=== PATIENT | male | born 1935 | race Caucasian/White ===

== ENCOUNTER 2021-05-10 12:59 | Inpatient (IN) | payer MEDICARE ==
--- NOTE | 2021-05-10 14:23 | ED ---
General Adult HPI - General Chief complaint: Skin/Abscess/Foreign Body Stated complaint: Toe infection Time Seen by Provider: 05/10/21 14:16 Source: patient, family Mode of arrival: wheelchair Limitations: no limitations - History of Present Illness Initial comments: Patient presents to the ED with his family for evaluation. 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 Per daughter, for the past 2-3 days, the patient has had worsening redness to his right first toe and foot. Patient also admits to having increasing right foot pain over the past couple of days. Daughter states that she noticed maggots in his right first toe wound today, and so she decided to bring the patient to the ED. Daughter states that the patient was started on penicillin by his industrial cleaning technician yesterday, and she states that he has had 3 doses of it so far. Patient denies having a fever, trauma or injury, any other site of pain, chest pain or pressure, dyspnea, dizziness, nausea or vomiting, or any other symptoms or complaints. - Related Data Home Medications Medication Instructions Recorded Confirmed Apixaban [Eliquis] 5 mg PO BID 05/10/21 05/10/21 Clopidogrel Bisulfate [Plavix] 75 mg PO DAILY 05/10/21 05/10/21 Donepezil HCl [Aricept] 10 mg PO HS 05/10/21 05/10/21 Furosemide [Lasix] 60 mg PO DAILY 05/10/21 05/10/21 Glimepiride [Amaryl] 4 mg PO BID 05/10/21 05/10/21 Losartan Potassium 50 mg PO DAILY 05/10/21 05/10/21 Metoprolol Tartrate 12.5 mg PO BID 05/10/21 05/10/21 Pravastatin Sodium [Pravachol] 40 mg PO DAILY 05/10/21 05/10/21 Tamsulosin HCl [Flomax] 0.4 mg PO DAILY 05/10/21 05/10/21 lisinopriL 20 mg PO DAILY 05/10/21 05/10/21 sitaGLIPtin [Januvia] 100 mg PO DAILY 05/10/21 05/10/21 Allergies Allergy/AdvReac Type Severity Reaction Status Date / Time No Known Allergies Allergy Verified 05/10/21 16:05 Review of Systems ROS Statement: Those systems with pertinent positive or pertinent negative responses have been documented in the HPI. ROS Other: All systems not noted in ROS Statement are negative. Past Medical History Past Medical History: Diabetes Mellitus History of Any Multi-Drug Resistant Organisms: None Reported Additional Past Surgical History / Comment(s): ankle surgery Past Psychological History: No Psychological Hx Reported Smoking Status: Never smoker Past Alcohol Use History: Occasional Past Drug Use History: None Reported General Exam Limitations: no limitations Head exam: Present: atraumatic, normocephalic Eye exam: Present: normal appearance, EOMI ENT exam: Present: mucous membranes moist Neck exam: Present: other (Trachea is in midline) Respiratory exam: Present: normal lung sounds bilaterally. Absent: respiratory distress, wheezes, rales, rhonchi, stridor Cardiovascular Exam: Present: bradycardia, irregular rhythm, normal heart sounds, other (Normal radial pulses bilaterally) Extremities exam: Present: other (An open wound is noted to the patient's distal right first toe with maggots noted within the wound; erythema, warmth and tenderness is noted to the patient's first and third toes, as well as the dorsum of the patient's right foot; no crepitation or fluctuence is appreciated; 1+ right DP pulse). Absent: calf tenderness Neurological exam: Present: alert, oriented X3. Absent: motor sensory deficit Psychiatric exam: Present: normal affect, normal mood Skin exam: Present: warm, dry, intact Course Vital Signs 05/10/21 05/10/21 05/10/21 13:16 13:30 16:21 Temperature 98.5 F Pulse Rate 47 L 38 L 40 L Respiratory 20 18 18 Rate Blood Pressure 120/75 141/61 141/62 O2 Sat by Pulse 98 98 100 Oximetry - Reevaluation(s) Reevaluation #1: 05/10/21 15:36 Case, H&P, test results and ED management were discussed with Dr. Vasquez. She accepts hospital admission. She agrees with podiatry consultation. She has no further recommendations at this time. EKG Findings - EKG Comments: EKG Findings:: Atrial fibrillation with slow ventricular response, ventricular rate of 36 bpm, normal QRS duration, normal QT interval, nonspecific T-wave abnormality, normal axis Medical Decision Making - Medical Decision Making Given the patient's diabetic foot/foot cellulitis and open wound with maggots, will admit the patient to the hospital for IV antibiotics and podiatry consultation. Dr. Vasquez has accepted hospital admission. Patient was given IV vancomycin and IV Zosyn in the ED. Patient is also noted to be bradycardic with heart rate in the 30s and 40s in the emergency department. Patient's rhythm appears to be atrial fibrillation. Patient is normotensive. Patient and daughter are unaware of any prior diagnosis of atrial fibrillation, but they do state that he has "a heart condition". They do not know what medications the patient takes, and they state that they are unable to get the patient's medication list at this time. Dr. Vasquez is aware, and she has asked that I place a cardiology consult. - Lab Data Result diagrams: 05/10/21 14:47 05/10/21 14:47 Lab Results 05/10/21 05/10/21 05/10/21 Range/Units 14:47 14:47 14:47 WBC 7.3 (3.8-10.6) k/uL RBC 3.95 L (4.30-5.90) m/uL Hgb 12.5 L (13.0-17.5) gm/dL Hct 37.1 L (39.0-53.0) % MCV 94.0 (80.0-100.0) fL MCH 31.7 (25.0-35.0) pg MCHC 33.8 (31.0-37.0) g/dL RDW 13.3 (11.5-15.5) % Plt Count 187 (150-450) k/uL MPV 7.6 Neutrophils % 78 % Lymphocytes % 14 % Monocytes % 4 % Eosinophils % 3 % Basophils % 0 % Neutrophils # 5.7 (1.3-7.7) k/uL Lymphocytes # 1.0 (1.0-4.8) k/uL Monocytes # 0.3 (0-1.0) k/uL Eosinophils # 0.2 (0-0.7) k/uL Basophils # 0.0 (0-0.2) k/uL PT 11.5 (9.0-12.0) sec INR 1.1 (<1.2) APTT 24.5 (22.0-30.0) sec Sodium 140 (137-145) mmol/L Potassium 4.0 (3.5-5.1) mmol/L Chloride 104 (98-107) mmol/L Carbon Dioxide 29 (22-30) mmol/L Anion Gap 7 mmol/L BUN 23 H (9-20) mg/dL Creatinine 0.99 (0.66-1.25) mg/dL Est GFR (CKD-EPI)AfAm 79 (>60 ml/min/1.73 sqM) Est GFR (CKD-EPI)NonAf 68 (>60 ml/min/1.73 sqM) Glucose 113 H (74-99) mg/dL Plasma Lactic Acid Anjel (0.7-2.0) mmol/L Calcium 8.9 (8.4-10.2) mg/dL Total Bilirubin 0.8 (0.2-1.3) mg/dL AST 22 (17-59) U/L ALT 15 (4-49) U/L Alkaline Phosphatase 80 (38-126) U/L Total Protein 6.1 L (6.3-8.2) g/dL Albumin 3.5 (3.5-5.0) g/dL 05/10/21 Range/Units 14:47 WBC (3.8-10.6) k/uL RBC (4.30-5.90) m/uL Hgb (13.0-17.5) gm/dL Hct (39.0-53.0) % MCV (80.0-100.0) fL MCH (25.0-35.0) pg MCHC (31.0-37.0) g/dL RDW (11.5-15.5) % Plt Count (150-450) k/uL MPV Neutrophils % % Lymphocytes % % Monocytes % % Eosinophils % % Basophils % % Neutrophils # (1.3-7.7) k/uL Lymphocytes # (1.0-4.8) k/uL Monocytes # (0-1.0) k/uL Eosinophils # (0-0.7) k/uL Basophils # (0-0.2) k/uL PT (9.0-12.0) sec INR (<1.2) APTT (22.0-30.0) sec Sodium (137-145) mmol/L Potassium (3.5-5.1) mmol/L Chloride (98-107) mmol/L Carbon Dioxide (22-30) mmol/L Anion Gap mmol/L BUN (9-20) mg/dL Creatinine (0.66-1.25) mg/dL Est GFR (CKD-EPI)AfAm (>60 ml/min/1.73 sqM) Est GFR (CKD-EPI)NonAf (>60 ml/min/1.73 sqM) Glucose (74-99) mg/dL Plasma Lactic Acid Anjel 1.0 (0.7-2.0) mmol/L Calcium (8.4-10.2) mg/dL Total Bilirubin (0.2-1.3) mg/dL AST (17-59) U/L ALT (4-49) U/L Alkaline Phosphatase (38-126) U/L Total Protein (6.3-8.2) g/dL Albumin (3.5-5.0) g/dL - Radiology Data Radiology results: report reviewed (Right foot x-rays: There is loss of the tuft of the distal phalanx of the big toe consistent with some chronic osteomyelitis) Disposition Clinical Impression: Cellulitis of right foot, Infestation, maggots, Atrial fibrillation with slow ventricular response Disposition: ADMITTED IP TO THIS [facility] Condition: Stable Is patient prescribed a controlled substance at d/c from ED?: No Time of Disposition: 15:41
[2021-05-10] MEDS ORDERED: VANCOMYCIN IV PER PHARMACY 1 EACH MISC MISCELLANE STA (14:45)
[2021-05-10] MEDS ORDERED: PIPERACILLIN-TAZOBACTAM 4.5 GM in SODIUM CHLORIDE 0.9% 100 ML IVPB STA (14:45)
[2021-05-10] MEDS ORDERED: PIPERACILLIN-TAZOBACTAM 3.375 GM in SODIUM CHLORIDE 0.9% 100 ML IVPB STA (14:48)
[2021-05-10 14:58] LABS: Basophils % (A) 0 %; Eosinophils # (A) 0.2 k/uL (0-0.7); Eosinophils % (A) 3 %; HCT 37.1 % (39.0-53.0); HGB 12.5 gm/dL (13.0-17.5); Lymphocytes % (A) 14 %; MCH 31.7 pg (25.0-35.0); MCHC 33.8 g/dL (31.0-37.0); Mean Platelet Volume 7.6; Monocytes # (A) 0.3 k/uL (0-1.0); Monocytes % (A) 4 %; Neutrophils # (A) 5.7 k/uL (1.3-7.7); Neutrophils % (A) 78 %; Platelet Count 187 k/uL (150-450); RBC 3.95 m/uL (4.30-5.90); RDW 13.3 % (11.5-15.5); WBC 7.3 k/uL (3.8-10.6)
[2021-05-10 15:06] LABS: Albumin 3.5 g/dL (3.5-5.0); Calcium 8.9 mg/dL (8.4-10.2); Total Bilirubin 0.8 mg/dL (0.2-1.3); Total Protein 6.1 g/dL (6.3-8.2)
[2021-05-10 15:09] LABS: INR 1.1 (<1.2); Partial Thromboplastin Time 24.5 sec (22.0-30.0); Prothrombin Time 11.5 sec (9.0-12.0)
[2021-05-10] MEDS ORDERED: VANCOMYCIN 1,500 MG in SODIUM CHLORIDE 0.9% 250 ML IVPB ONE (15:30)
--- NOTE | 2021-05-10 16:27 | XR ---
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 Components appear in anatomic position. There is narrowing and spurring at the first MP joint. There is vascular calcification. There is some apparent destruct ion of the tuft of the distal phalanx of the big toe. The metatarsals are intact. IMPRESSION: There is loss of the tuft of the distal phalanx of the big toe consistent with some chron ic osteomyelitis.
--- NOTE | 2021-05-10 19:39 | HP ---
HISTORY AND PHYSICAL DATE OF SERVICE: 05/10/2021. CHIEF COMPLAINT: Toe infection. HISTORY OF PRESENT ILLNESS: This 85-year-old gentleman with a past medical history of multiple medical problems, including diabetes mellitus and history of ankle surgery, being followed by Dr. Morataya in the outpatient setting, is apparently living with family. Per the patient's daughter, the patient has a chronic right first toe infection with recurrent infections, and for the last 2-3 days the patient has been complaining of significant redness and difficulty and also some right foot pain. The patient taken to [facility] and admitted for further evaluation and treatment. The patient was started on penicillin by the patient's inclusion teacher and the wound has shown some maggots in the wound. The patient is admitted for further evaluation and treatment. There is no history of any fever, rigor or chills at this time. PAST MEDICAL HISTORY: History of diabetes mellitus, type 2. MEDICATIONS: Medications prior to admission include Aricept, lisinopril, Flomax, losartan, Lasix, Januvia, Pravachol, metoprolol, Amaryl, Plavix, Eliquis. Doses are reviewed. ALLERGIES: NONE. FAMILY HISTORY: No history of heart disease or strokes in the family. SOCIAL HISTORY: Occasional alcohol. No history of smoking. REVIEW OF SYSTEMS: ENT: Diminished hearing. Diminished vision. CARDIOVASCULAR SYSTEM: No angina, palpitations. RESPIRATORY SYSTEM: No cough, hemoptysis. GI: No nausea, vomiting, diarrhea. : No dysuria. NERVOUS SYSTEM: No numbness, weakness. ALLERGY/IMMUNOLOGY: No asthma or hay fever. MUSCULOSKELETAL: As mentioned earlier. HEMATOLOGY/ONCOLOGY: No history of anemia. ENDOCRINE: As mentioned earlier. CONSTITUTIONAL: As mentioned earlier. DERMATOLOGY: As mentioned earlier. RHEUMATOLOGY: Negative. PSYCHIATRY: As mentioned earlier. PHYSICAL EXAMINATION: Patient alert and oriented x3. Pulse is 45, blood pressure 149/50, respiration 18, temperature 98.4, pulse ox 98% on room air. HEENT: Conjunctivae normal. Oral mucosa moist. NECK: No jugular venous distention. No carotid bruit. No lymph node enlargement. CARDIOVASCULAR: S1, S2 muffled. RESPIRATION: Breath sounds diminished at the bases. No rhonchi. No crackles. ABDOMEN: Soft, nontender. LEGS: Significant infection and maggots of the right big toe and in intertrigo area also. Some tenderness also present. Pulses are diminished bilaterally. NERVOUS SYSTEM: Higher functions as mentioned earlier. Moves all 4 limbs. No focal motor or sensory deficit. LYMPHATICS: No lymph node palpable in neck, axillae or groin. SKIN: No ulcer, rash, bleeding. JOINTS: No active deforming arthropathy. LABS: WBC 7.3, hemoglobin 12.5. Otherwise, glucose 113. ASSESSMENT: 1. Acute on chronic right big toe infection with possible cellulitis. Rule out osteomyelitis with maggots. 2. Anemia, normocytic anemia of chronic disease. 3. Increased glucose. 4. Diabetes mellitus, type 2. 5. Hypertension. 6. Bradycardia, sinus, with possible junctional rhythm. 7. Hyperlipidemia. 8. Obesity with body mass index of 33.5. 9. FULL CODE. RECOMMENDATIONS AND DISCUSSION: In this 85-year-old gentleman who presented with multiple complex medical issues, we will monitor the patient closely, continue the current medications, continue symptomatic treatment. Otherwise at this time I would recommend infectious disease evaluation as well as surgery evaluation and also cardiology for bradycardia. Telemetry. Broad-spectrum IV antibiotics. Cultures. Prognosis is guarded because of multiple complex medical issues. Further recommendations to follow. A copy of this dictation is being forwarded to Dr. Morataya, who is the primary physician. MMODL / IJN: [id number] /
[2021-05-10 21:10] LABS: Glucose,Whole Blood 226 mg/dL (75-99)
[2021-05-10] MEDS: INSULIN ASPART (NovoLOG) 100 UNIT/ML VIAL SQ SCH (22:34)
[2021-05-10] MEDS: GLIMEPIRIDE 4 MG TAB PO SCH (22:35)
[2021-05-10] MEDS: DONEPEZIL 10 MG TAB PO SCH (22:35)
[2021-05-10] MEDS: APIXABAN 5 MG TAB PO SCH (22:35)
[2021-05-11 05:13] LABS: Basophils % (A) 0 %; Eosinophils # (A) 0.2 k/uL (0-0.7); Eosinophils % (A) 3 %; HCT 34.4 % (39.0-53.0); HGB 11.4 gm/dL (13.0-17.5); Lymphocytes % (A) 15 %; MCH 31.5 pg (25.0-35.0); MCHC 33.2 g/dL (31.0-37.0); MCV 94.7 fL (80.0-100.0); Mean Platelet Volume 8.1; Monocytes # (A) 0.4 k/uL (0-1.0); Monocytes % (A) 7 %; Neutrophils % (A) 74 %; Platelet Count 146 k/uL (150-450); RBC 3.63 m/uL (4.30-5.90); RDW 13.1 % (11.5-15.5); WBC 6.7 k/uL (3.8-10.6)
[2021-05-11 07:22] LABS: Glucose,Whole Blood 75 mg/dL (75-99)
[2021-05-11] MEDS: INSULIN ASPART (NovoLOG) 100 UNIT/ML VIAL SQ SCH ×4 (07:42→21:28)
[2021-05-11] MEDS ORDERED: VANCOMYCIN 1,500 MG in SODIUM CHLORIDE 0.9% 250 ML IVPB SCH (08:00)
[2021-05-11] MEDS: CLOPIDOGREL 75 MG TAB PO SCH (08:05)
[2021-05-11] MEDS: TAMSULOSIN 0.4 MG CAP.ER.24H PO SCH (08:05)
[2021-05-11] MEDS: APIXABAN 5 MG TAB PO SCH ×2 (08:05→21:16)
[2021-05-11] MEDS: FUROSEMIDE 20 MG TAB PO SCH (08:05)
[2021-05-11] MEDS: GLIMEPIRIDE 4 MG TAB PO SCH ×2 (08:06→21:16)
[2021-05-11] MEDS: PRAVASTATIN SODIUM 40 MG TAB PO SCH (08:07)
[2021-05-11] MEDS: LINAGLIPTIN 5 MG TABLET PO SCH (08:07)
[2021-05-11] MEDS ORDERED: LOSARTAN 50 MG TAB PO SCH (09:00)
[2021-05-11] MEDS ORDERED: lisinopriL 20 MG TAB PO SCH (09:00)
[2021-05-11 10:47] LABS: African American GFR (CKD) 78.1 (60.0-200.0); Albumin 3.4 g/dL (3.8-4.9); Albumin/Globulin Ratio 1.79 (1.60-3.17); Anion Gap 15.3 mmol/L (4.00-12.00); BUN/Creat Ratio 20.6 Ratio (12.00-20.00); Blood Urea Nitrogen 20.6 mg/dL (9.0-27.0); Calcium 8.3 mg/dL (8.7-10.3); Carbon Dioxide 21.7 mmol/L (21.6-31.8); Globulin 1.9 g/dL (1.6-3.3); Non-African American GFR(CKD) 67.4 (60.0-200.0); Potassium 3.4 mmol/L (3.5-5.5); Total Bilirubin 0.4 mg/dL (0.30-1.20); Total Protein 5.3 g/dL (6.2-8.2)
[2021-05-11] MEDS ORDERED: Potassium Replacement Protocol 1 EACH MISC MISCELLANE PRN (11:12)
--- NOTE | 2021-05-11 11:53 | P.CRDCN ---
History of Present Illness Consult date: 05/11/21 Requesting physician: Jennifer Vasquez Reason for Consult (text): atrial fibrillation with slow ventricular response Chief complaint: toe infection History of present illness: Pleasant 85-year-old gentleman who is a poor historian. Much of the HPI was obtained from the chart. Presented to the hospital due to worsening chronic right first toe infection. Apparently they noted some maggots in the wound yesterday. We were asked to the patient in consultation due to atrial fibrillation with slow ventricular response. Patient is unaware of any history of atrial fibrillation but is on Eliquis and metoprolol at home. He is unaware of any history of hypertension. Does admit to a history of diabetes. Has been following with podiatry for this wound for quite some time. The patient is asym ptomatic with the bradycardia. He denies any shortness of breath, chest discomfort, dizziness, lightheadedness or syncope. At the time of my examination he is lying flat in bed with no complaints of orthopnea. Labs on admission showed potassium of 4.0 with a repeat this morning of 3.4, BUN 23, cr eatinine 0.99, hemoglobin 12.5 with a repeat this morning of 11.4. Heart rate is running anywhere from 30s to 50s with evidence of ventricular escape beats noted on surveillance monitor as well as PVCs and brief runs of nonsustained multifocal ventricular tachycardia. Patient's metoprolol is on hold. Blood pressure this morning is elevated. He is currently on both lisinopril and losartan. Past Medical History Past Medical History: Diabetes Mellitus History of Any Multi-Drug Resistant Organisms: None Reported Additional Past Surgical History / Comment(s): ankle surgery Past Psychological History: No Psychological Hx Reported Smoking Status: Former smoker Past Alcohol Use History: Occasional Past Drug Use History: None Reported Medications and Allergies Home Medications Medication Instructions Recorded Confirmed Type Apixaban [Eliquis] 5 mg PO BID 05/10/21 05/10/21 History Clopidogrel Bisulfate [Plavix] 75 mg PO DAILY 05/10/21 05/10/21 History Donepezil HCl [Aricept] 10 mg PO HS 05/10/21 05/10/21 History Furosemide [Lasix] 60 mg PO DAILY 05/10/21 05/10/21 History Glimepiride [Amaryl] 4 mg PO BID 05/10/21 05/10/21 History Losartan Potassium 50 mg PO DAILY 05/10/21 05/10/21 History Metoprolol Tartrate 12.5 mg PO BID 05/10/21 05/10/21 History Pravastatin Sodium [Pravachol] 40 mg PO DAILY 05/10/21 05/10/21 History Tamsulosin HCl [Flomax] 0.4 mg PO DAILY 05/10/21 05/10/21 History lisinopriL 20 mg PO DAILY 05/10/21 05/10/21 History sitaGLIPtin [Januvia] 100 mg PO DAILY 05/10/21 05/10/21 History Allergies Allergy/AdvReac Type Severity Reaction Status Date / Time No Known Allergies Allergy Verified 05/10/21 16:05 Physical Exam Vitals: Vital Signs Temp Pulse Pulse Resp BP BP Pulse Ox 05/11/21 08:08 41 L 16 169/67 97 05/11/21 04:30 97.9 F 45 L 20 144/50 97 05/10/21 20:30 97.6 F 41 L 20 189/74 94 L 05/10/21 17:50 45 L 18 149/58 98 05/10/21 16:21 40 L 18 141/62 100 05/10/21 13:30 38 L 18 141/61 98 05/10/21 13:16 98.5 F 47 L 20 120/75 98 Intake and Output 05/10/21 05/11/21 05/11/21 22:59 06:59 14:59 Intake Total 100 100 Balance 100 100 Intake: Oral 100 100 Other: # Voids 2 Weight 99.79 kg PHYSICAL EXAMINATION: This is a 85-year-old male in no apparent distress at the time of my examination. VITAL SIGNS: Blood pressure 169/67, heart rate 41, respirations 16, temp 97.9F. Patient is 97 % on room air. HEENT: Head is atraumatic, normocephalic. Pupils are equal, round. Sclerae anicteric. Conjunctivae are clear. Mucous membranes of the mouth are moist. Neck is supple. There is no elevated jugular venous pressure. No carotid bruit is heard. CHEST EXAMINATION: Clear to auscultation bilaterally. No wheezes rales or rhonchi. Respirations even and nonlabored. HEART EXAMINATION: Heart irregular rate and rhythm, positive S1 and S2. Bradycardia noted. No S3. No S4. With a grade 2/6 systolic ejection murmur at the base. ABDOMEN: Soft, nontender. Bowel sounds are heard. No organomegaly noted. EXTREMITIES: Minutes peripheral pulses with evidence of mild right lower extremi ty peripheral edema and no calf tenderness noted. Dressing noted to right foot. NEUROLOGIC EXAMINATION: Patient is awake, alert and oriented x3. Memory loss noted, patient is a poor historian Results 05/11/21 03:50 05/11/21 03:50 Cardiac Enzymes 05/10/21 05/11/21 Range/Units 14:47 03:50 AST 22 17 (17-59) U/L Coagulation 05/10/21 Range/Units 14:47 PT 11.5 (9.0-12.0) sec APTT 24.5 (22.0-30.0) sec CBC 05/10/21 05/11/21 Range/Units 14:47 03:50 WBC 7.3 6.7 (3.8-10.6) k/uL RBC 3.95 L 3.63 L (4.30-5.90) m/uL Hgb 12.5 L 11.4 L (13.0-17.5) gm/dL Hct 37.1 L 34.4 L (39.0-53.0) % Plt Count 187 146 L (150-450) k/uL Comprehensive Metabolic Panel 05/10/21 05/11/21 Range/Units 14:47 03:50 Sodium 140 143 (137-145) mmol/L Potassium 4.0 3.4 L (3.5-5.1) mmol/L Chloride 104 106 (98-107) mmol/L Carbon Dioxide 29 21.7 (22-30) mmol/L BUN 23 H 20.6 (9-20) mg/dL Creatinine 0.99 1.0 (0.66-1.25) mg/dL Glucose 113 H 65 L (74-99) mg/dL Calcium 8.9 8.3 L (8.4-10.2) mg/dL AST 22 17 (17-59) U/L ALT 15 14 (4-49) U/L Alkaline Phosphatase 80 68 (38-126) U/L Total Protein 6.1 L 5.3 L (6.3-8.2) g/dL Albumin 3.5 3.4 L (3.5-5.0) g/dL Current Medications Generic Name Dose Route Start Last Admin Trade Name Freq PRN Reason Stop Dose Admin Apixaban 5 mg 05/10/21 21:00 05/11/21 08:05 Apixaban 5 Mg Tab PO 5 mg BID JUAN PABLO Administration Protocol Clopidogrel Bisulfate 75 mg 05/11/21 09:00 05/11/21 08:05 Clopidogrel 75 Mg Tab PO 75 mg DAILY JUAN PABLO Administration Donepezil HCl 10 mg 05/10/21 21:00 05/10/21 22:35 Donepezil 10 Mg Tab PO 10 mg HS JUAN PABLO Administration Furosemide 60 mg 05/11/21 09:00 05/11/21 08:05 Furosemide 20 Mg Tab PO 60 mg DAILY JUAN PABLO Administration Glimepiride 4 mg 05/10/21 21:00 05/11/21 08:06 Glimepiride 4 Mg Tab PO 4 mg BID JUAN PABLO Administration Cefazolin Sodium 2 gm/ Sodium 50 mls @ 100 mls/hr 05/11/21 00:00 05/11/21 08:05 Chloride IVPB 100 mls/hr Q8HR JUAN PABLO Administration Insulin Aspart 0 unit 05/10/21 21:00 05/11/21 07:42 Insulin Aspart (Novolog) 100 Unit/Ml Vial SQ Not Given ACHS JUAN PABLO Protocol Linagliptin 5 mg 05/11/21 09:00 05/11/21 08:07 Linagliptin 5 Mg Tablet PO 5 mg DAILY JUAN PABLO Administration Lisinopril 20 mg 05/11/21 09:00 05/11/21 08:05 Lisinopril 20 Mg Tab PO 20 mg DAILY JUAN PABLO Administration Losartan Potassium 50 mg 05/11/21 09:00 05/11/21 08:05 Losartan 50 Mg Tab PO 50 mg DAILY JUAN PABLO Administration Miscellaneous Information 1 each 05/11/21 11:12 Potassium Replacement Protocol 1 Each Misc MISCELLANE DAILY PRN Per Protocol Protocol Potassium Chloride 20 meq 05/11/21 12:00 Potassium Chloride Er 20 Meq Tab.Er PO 05/11/21 13:01 Q1HR JUAN PABLO Protocol Pravastatin Sodium 40 mg 05/11/21 09:00 05/11/21 08:07 Pravastatin Sodium 40 Mg Tab PO 40 mg DAILY JUAN PABLO Administration Tamsulosin HCl 0.4 mg 05/11/21 09:00 05/11/21 08:05 Tamsulosin 0.4 Mg Cap.Er.24h PO 0.4 mg DAILY JUAN PABLO Administration Intake and Output 05/10/21 05/11/21 05/11/21 22:59 06:59 14:59 Intake Total 100 100 Balance 100 100 Intake: Oral 100 100 Other: # Voids 2 Weight 99.79 kg 05/11/21 03:50 05/11/21 03:50 Assessment and Plan Assessment: #1 atrial fibrillation with slow ventricular response, asymptomatic #2 hypertension #3 right great toe infection #4 diabetes mellitus type II Plan: From cardiology's perspective will obtain 2-D echo with Doppler study to assess cardiac structure and function. We will check a TSH. Replace potassium. Discontinue lisinopril and increase losartan for better blood pressure control. Continue to hold metoprolol and monitor the heart rates closely. If heart rate remains low he may benefit from PPM. We will continue to follow the patient and provide further recommendations accordingly. The above dictated assessment and findings were discussed with signing physician. The impression and plan of care have been directed as dictated. Maricruz Weber, Nurse Practitioner, acting as scribe for signing physician.
[2021-05-11] MEDS: POTASSIUM CHLORIDE ER 20 MEQ TAB.ER PO SCH (12:48)
[2021-05-11 13:29] LABS: Glucose,Whole Blood 209 mg/dL (75-99)
--- NOTE | 2021-05-11 14:00 | ECHOF ---
Referral Reason:AF w/bradycardia MEASUREMENTS -------- HEIGHT: 172.7 cm WEIGHT: 99.8 kg BP: 169/67 RVIDd: 3.2 cm (< 3.3) IVSd: 1.5 cm (0.6 - 1.1) LVIDd: 4.3 cm (3.9 - 5.3) LVPWd: 1.7 cm (0.6 - 1.1) IVSs: 1.9 cm LVIDs: 3.4 cm LVPWs: 2.1 cm LAESV Index (A-L): 25.49 ml/m MV EXCURSION: 16.144 mm (> 18.000) MV EF SLOPE: 71 mm/s (70 - 150) EPSS: 1.0 cm AV maxP.31 mmHg AV meanP.43 mmHg RAP: 5.00 mmHg RVSP: 47.08 mmHg FINDINGS -------- This was a technically adequate study. The left ventricular size is normal. There is moderate concentric left ventricular hypertrophy. O verall left ventricular systolic function is low-normal with, an EF between 50 - 55 %. The right ventricle is normal in size. Normal LA size by volume 22+/-6 ml/m2. The right atrial size is normal. Interatrial and interventricular septum intact. There is no evidence of aortic regurgitation. There is mild aortic stenosis present. The maximum velocity across the aortic valve is 2.88m/s. Peak/mean gradient across the Aortic Valve is 33.31mmH g / 18.43mmHg. The mitral valve leaflets are mildly thickened. Mild mitral annular calcification present. Mild m itral regurgitation is present. [id number] tricuspid regurgitation present. There is mild to moderate pulmonary hypertension. The right ventricular systolic pressure, as measured by Doppler, is 47.08mmHg. There is no pulmonic regurgitation present. The aortic root size is normal. IVC Not well visulized. There is no pericardial effusion. CONCLUSIONS -------- 1. The left ventricular size is normal. 2. There is moderate concentric left ventricular hypertrophy. 3. Overall left ventricular systolic function is low-normal with, an EF between 50 - 55 %. 4. There is mild aortic stenosis present. 5. The maximum velocity across the aortic valve is 2.88m/s. 6. Peak/mean gradient across the Aortic Valve is 33.31mmHg / 18.43mmHg. 7. The mitral valve leaflets are mildly thickened. 8. Mild mitral annular calcification present. 9. Mild mitral regurgitation is present. 10. [id number] tricuspid regurgitation present. 11. There is mild to moderate pulmonary hypertension. 12. The right ventricular systolic pressure, as measured by Doppler, is 47.08mmHg. LEASE ADMINISTRATION SUPERVISOR: Brenna Abebe RDCS
[2021-05-11 16:59] LABS: Glucose,Whole Blood 159 mg/dL (75-99)
--- NOTE | 2021-05-11 18:48 | PN ---
PROGRESS NOTE DATE OF SERVICE: 05/11/2021 This 85-year-old gentleman who was admitted with right big toe infection had some maggots also in there. No chest pain. No palpitations. No fever. Past medical history reviewed. The patient also had apparently junctional bradycardia. Beta blockers have been stopped. Cardiology is following the patient closely. REVIEW OF SYSTEMS: CARDIOVASCULAR: No angina, palpitations. RESPIRATORY SYSTEM: As mentioned earlier. GI: As mentioned earlier. : No dysuria. NERVOUS SYSTEM: No numbness, weakness. CURRENT MEDICATIONS: Reviewed. They include Eliquis, cefazolin, Plavix, Aricept, Lasix, Amaryl. Doses are reviewed. PHYSICAL EXAMINATION: Patient alert and oriented x3. Pulse is 52, blood pressure 102/49, respiration 18, temperature 97.8, pulse ox 99% on room air. HEENT: Conjunctivae normal. CARDIOVASCULAR: S1, S2 muffled. RESPIRATION: Breath sounds diminished at the bases. ABDOMEN: Soft, nontender. NERVOUS SYSTEM: No focal deficit. EXAMINATION OF THE RIGHT FOOT: Infection present. LAB STUDIES: WBC 6.7, hemoglobin 11.7, sodium 143, potassium 3.4. Glucose noted. ASSESSMENT: 1. Acute on chronic right big toe infection with possible cellulitis with maggots. Rule out acute osteomyelitis. 2. 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 3. Anemia, normocytic anemia of chronic disease. 4. Increased glucose. 5. Diabetes mellitus, type 2. 6. Hypertension. 7. Hyperlipidemia. 8. Obesity with body mass index of 33.4. 9. FULL CODE. RECOMMENDATIONS AND DISCUSSION: I recommend to continue current medications, continue with symptomatic treatment. Continue antibiotics. Cardiology has been consulted. Two-D echo with Doppler showed ejection fraction 50% to 55%. Prognosis guarded. Further recommendations to follow. MMODL / IJN: [id number] /
[2021-05-11] MEDS ORDERED: POTASSIUM CHLORIDE ER 20 MEQ TAB.ER PO SCH (19:00)
[2021-05-11 20:55] LABS: Glucose,Whole Blood 162 mg/dL (75-99)
[2021-05-11] MEDS: DONEPEZIL 10 MG TAB PO SCH (21:16)
[2021-05-11] MEDS: AMPICILLIN-SULBACTAM 3 GM in SODIUM CHLORIDE 0.9% 100 ML IVPB SCH (23:37)
[2021-05-12] MEDS: AMPICILLIN-SULBACTAM 3 GM in SODIUM CHLORIDE 0.9% 100 ML IVPB SCH ×4 (06:04→23:31)
[2021-05-12 08:21] LABS: Glucose,Whole Blood 85 mg/dL (75-99)
[2021-05-12] MEDS: LINAGLIPTIN 5 MG TABLET PO SCH (08:52)
[2021-05-12] MEDS: PRAVASTATIN SODIUM 40 MG TAB PO SCH (08:52)
[2021-05-12] MEDS: GLIMEPIRIDE 4 MG TAB PO SCH ×2 (08:53→21:53)
[2021-05-12] MEDS: APIXABAN 5 MG TAB PO SCH ×2 (08:53→21:52)
[2021-05-12] MEDS: TAMSULOSIN 0.4 MG CAP.ER.24H PO SCH (08:54)
[2021-05-12] MEDS: FAMOTIDINE 20 MG/2 ML VIAL IV SCH ×2 (08:54→21:53)
[2021-05-12] MEDS: CLOPIDOGREL 75 MG TAB PO SCH (08:54)
[2021-05-12] MEDS: LOSARTAN 50 MG TAB PO SCH (08:54)
[2021-05-12] MEDS: FUROSEMIDE 20 MG TAB PO SCH (08:54)
--- NOTE | 2021-05-12 09:06 | P.CONS ---
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 and history of recurrent infection patient has been brought to the hospital after the patient was noticed to have a worsening redness in the right big toe and foot and then noticed some negative in his right foot/big toe wound area so the patient was brought to the hospital patient has been evaluated in the outpatient setting for his 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 and the patient was started on penicillin the patient taken 3 doses without any improvement patient denies having any fever or any chills and had no fever was recorded during admission to the hospital patient did have a normal white count kidney function has been normal liver enzymes are normal yoon PCR was negative patient did have a x-ray of the foot which shows loss of the tuft of the distal phalanx of the big toe consistent with a chronic osteomyelitis patient did received cefazolin infectious he was consulted for further management of antibiotic therapy patient denies having any fever or any chills, the patient mention he is feeling better and would like to go home patient denies pain to his right big toe no chest pain shortness of breath or cough no nausea vomiting abdominal pain or diarrhea Review of system: CONSTITUTIONAL: Positive for weakness denies fever. EYES: No complaint. ENT: No complaint. RESPIRATORY: No complaint. CARDIOVASCULAR: No complaint. GENITOURINARY: No complaint. GASTROINTESTINAL: No complaint. MUSCULOSKELETAL: As per history of present illness. INTEGUMENTARY: No complaint. PSYCHOLOGIC: No complaint. ENDOCRINE: No complaint. NEUROLOGIC: No complaint. Past medical history : Reviewed, documented below Past surgical history : Reviewed, documented below Social history: Reviewed, documented below Medications: Reviewed, as documented below EXAMINATION: Vital sigans= Reviewed and documented below GENERAL DESCRIPTION: Elderly male lying in bed, no distress. No tachypnea or accessory muscle of respiration use. HEENT: Shows Pallor , no scleral icterus. Oral mucous membrane is dry. NECK: Trachea central, no thyromegaly. LUNGS: Unlabored breathing. Clear to auscultation anteriorly. No wheeze or crackle. HEART: S1, S2, regular rate and rhythm. ABDOMEN: Soft, no tenderness , guarding or rigidity EXTREMITIES: Right big toe tip did have a wound with multiple maggots which were removed with surrounding swelling and redness no foul-smelling drainage. SKIN: No rash, no masses palpable. NEUROLOGICAL: The patient is awake, alert, oriented x3, mood and affect normal. LABS AND RADIOLOGY: Reviewed results see below Assessment : Patient with right elevated foot infection in this patient who did have right big toe chronic nonhealing wound concerning for acute on chronic osteomyelitis with a maggot infestation will need to cover for the polymicrobial ambar usually associated with this types of infection Plan: 1-recommend vascular surgery evaluation for debridement of the wound and deep culture 2-wound was thoroughly cleaned and should be packed with Aquacel silver dressing daily 3-discontinue cefazolin start the patient on Unasyn 3 g every 6 hours We will follow on clinical condition and cultures to further adjust medication if needed Thank you for this consultation we will follow the patient along with you Past Medical History Past Medical History: Diabetes Mellitus History of Any Multi-Drug Resistant Organisms: None Reported Additional Past Surgical History / Comment(s): ankle surgery Past Psychological History: No Psychological Hx Reported Smoking Status: Former smoker Past Alcohol Use History: Occasional Past Drug Use History: None Reported Medications and Allergies Home Medications Medication Instructions Recorded Confirmed Type Apixaban [Eliquis] 5 mg PO BID 05/10/21 05/10/21 History Clopidogrel Bisulfate [Plavix] 75 mg PO DAILY 05/10/21 05/10/21 History Donepezil HCl [Aricept] 10 mg PO HS 05/10/21 05/10/21 History Furosemide [Lasix] 60 mg PO DAILY 05/10/21 05/10/21 History Glimepiride [Amaryl] 4 mg PO BID 05/10/21 05/10/21 History Losartan Potassium 50 mg PO DAILY 05/10/21 05/10/21 History Metoprolol Tartrate 12.5 mg PO BID 05/10/21 05/10/21 History Pravastatin Sodium [Pravachol] 40 mg PO DAILY 05/10/21 05/10/21 History Tamsulosin HCl [Flomax] 0.4 mg PO DAILY 05/10/21 05/10/21 History lisinopriL 20 mg PO DAILY 05/10/21 05/10/21 History sitaGLIPtin [Januvia] 100 mg PO DAILY 05/10/21 05/10/21 History Allergies Allergy/AdvReac Type Severity Reaction Status Date / Time No Known Allergies Allergy Verified 05/10/21 16:05 Physical Exam Vitals: Vital Signs Temp Pulse Pulse Resp BP BP Pulse Ox 05/11/21 08:08 41 L 16 169/67 97 05/11/21 08:00 41 L 16 05/11/21 04:30 97.9 F 45 L 20 144/50 97 05/10/21 20:30 97.6 F 41 L 20 189/74 94 L 05/10/21 17:50 45 L 18 149/58 98 05/10/21 16:21 40 L 18 141/62 100 Intake and Output 05/11/21 05/11/21 05/11/21 06:59 14:59 22:59 Intake Total 100 Balance 100 Intake: Oral 100 Other: Voiding Method Toilet # Voids 2 Results CBC & Chem 7: 05/11/21 03:50 05/11/21 16:00 Labs: Abnormal Lab Results - Last 24 Hours (Table) 05/10/21 05/10/21 05/11/21 Range/Units 21:01 21:05 03:50 RBC 3.63 L (4.30-5.90) m/uL Hgb 11.4 L (13.0-17.5) gm/dL Hct 34.4 L (39.0-53.0) % Plt Count 146 L (150-450) k/uL Potassium (3.5-5.5) mmol/L Anion Gap (4.00-12.00) mmol/L BUN/Creatinine Ratio (12.00-20.00) Ratio Glucose (70-110) mg/dL POC Glucose (mg/dL) 226 H (75-99) mg/dL Hemoglobin A1c 7.0 H (4.0-6.0) % Calcium (8.7-10.3) mg/dL Total Protein (6.2-8.2) g/dL Albumin (3.8-4.9) g/dL 05/11/21 05/11/21 Range/Units 03:50 13:22 RBC (4.30-5.90) m/uL Hgb (13.0-17.5) gm/dL Hct (39.0-53.0) % Plt Count (150-450) k/uL Potassium 3.4 L (3.5-5.5) mmol/L Anion Gap 15.30 H (4.00-12.00) mmol/L BUN/Creatinine Ratio 20.60 H (12.00-20.00) Ratio Glucose 65 L (70-110) mg/dL POC Glucose (mg/dL) 209 H (75-99) mg/dL Hemoglobin A1c (4.0-6.0) % Calcium 8.3 L (8.7-10.3) mg/dL Total Protein 5.3 L (6.2-8.2) g/dL Albumin 3.4 L (3.8-4.9) g/dL
[2021-05-12] MEDS: INSULIN ASPART (NovoLOG) 100 UNIT/ML VIAL SQ SCH ×4 (09:07→21:53)
[2021-05-12 11:56] VITALS: BMI 33.4
[2021-05-12 11:59] LABS: African American GFR (CKD) >90 (>60 ml/min/1.73 sqM); Anion Gap 4 mmol/L; Blood Urea Nitrogen 17 mg/dL (9-20); Calcium 8.6 mg/dL (8.4-10.2); Carbon Dioxide 31 mmol/L (22-30); Chloride 104 mmol/L (98-107); Glucose 207 mg/dL (74-99); Non-African American GFR(CKD) 79 (>60 ml/min/1.73 sqM); Potassium 3.8 mmol/L (3.5-5.1); Sodium 139 mmol/L (137-145)
[2021-05-12 13:15] LABS: Glucose,Whole Blood 195 mg/dL (75-99)
--- NOTE | 2021-05-12 13:15 | P.PN ---
Subjective Progress Note Date: 05/12/21 HISTORY OF PRESENT ILLNESS: Pleasant 85-year-old gentleman who is a poor historian. Much of the HPI was obtained from the chart. Presented to the hospital due to worsening chronic right first toe infection. Apparently they noted some maggots in the wound yesterday. We were asked to the patient in consultation due to atrial fibrillation with slow ventricular response. Patient is unaware of any history of atrial fibrillation but is on Eliquis and metoprolol at home. He is unaware of any history of hypertension. Does admit to a history of diabetes. Has been following with podiatry for this wound for quite some time. The patient is asymptomatic with the bradycardia. He denies any shortness of breath, chest discomfort, dizziness, lightheadedness or syncope. At the time of my examination he is lying flat in bed with no complaints of orthopnea. Labs on admission showed potassium of 4.0 with a repeat this morning of 3.4, BUN 23, creatinine 0.99, hemoglobin 12.5 with a repeat this morning of 11.4. Heart rate is running anywhere from 30s to 50s with evidence of ventricular escape beats noted on monitoring manager as well as PVCs and brief runs of nonsustained m ultifocal ventricular tachycardia. Patient's metoprolol is on hold. Blood pressure this morning is elevated. He is currently on both lisinopril and losartan. 05/12/2021 Patient examined at the bedside. Patient denies chest pain or pressure. Denies shortness of breath. Echocardiogram completed revealed ejection fraction 50-55%, mild aortic stenosis, mild mitral regurgitation, [id number] tricuspid regurgitation, and mild to moderate pulmonary hypertension. TSH normal at 0.907. Telemetry reveals atrial fibrillation with controlled ventricular rates in the 50s. PHYSICAL EXAM: VITAL SIGNS: Reviewed. GENERAL: Well-developed in no acute distress. NECK: Supple. No JVD or thyromegaly LUNGS: Respirations even and unlabored. Lungs essentially clear to auscultation bilaterally. HEART: Irregular rate and rhythm. S1 and S2 heard. Systolic murmur noted. EXTREMITIES: Normal range of motion. No clubbing or cyanosis. Peripheral pulses intact. No lower extremity edema ASSESSMENT: #1 atrial fibrillation with slow ventricular response, asymptomatic #2 hypertension #3 right great toe infection #4 diabetes mellitus type II PLAN: Continue to hold metoprolol now and at discharge Patient is stable from a cardiac standpoint. We will sign off. Nurse practitioner note has been reviewed by physician. Signing provider agrees with the documented findings, assessment, and plan of care. Objective - Vital Signs Vital signs: Vital Signs Temp 98.1 F 05/12/21 04:47 Pulse 55 L 05/12/21 08:55 Resp 16 05/12/21 04:47 BP 120/72 05/12/21 08:55 Pulse Ox 97 05/12/21 04:47 Intake & Output 05/11/21 05/12/21 05/12/21 18:59 06:59 18:59 Intake Total 740 Balance 740 Intake: Intake, IV Titration 200 Amount Ampicillin-Sulbactam 3 gm 200 In Sodium Chloride 0.9% 100 ml @ 200 mls/hr IVPB Q6HR [facility] Rx#:[id number] Oral 540 Other: Voiding Method Toilet Toilet Toilet - Labs CBC & Chem 7: 05/11/21 03:50 05/12/21 11:17 Labs: Abnormal Lab Results - Last 24 Hours (Table) 05/10/21 05/11/21 05/11/21 Range/Units 21:01 13:22 16:58 POC Glucose (mg/dL) 209 H 159 H (75-99) mg/dL Hemoglobin A1c 7.0 H (4.0-6.0) % 05/11/21 Range/Units 20:53 POC Glucose (mg/dL) 162 H (75-99) mg/dL Hemoglobin A1c (4.0-6.0) % Microbiology - Last 24 Hours (Table) 05/11/21 16:45 Gram Stain - Preliminary Toe - Right First Wound Culture - Preliminary 05/10/21 14:47 Blood Culture - Preliminary Blood No Growth after 24 hours
--- NOTE | 2021-05-12 14:11 | NM ---
EXAMINATION TYPE: NM bone 3 phase DATE OF EXAM: 05/12/2021 COMPARISON: Right foot radiographs 05/10/2021 HISTORY: Right toe osteomyelitis as questioned. Triple phase bone scintigraphy was performed following the injection of 22.2 mCi Tc 99m MDP. Immedia te images and 5.75 hours post injection images acquired. FINDINGS: There is no scintigraphic evidence to suggest metastatic disease or osteomyelitis. There is increased uptake noted in the delayed imaging in the bilateral great toes and bilateral ankles which is most l ikely degenerative in etiology. There is photopenia noted in the region of the right ankle, consisten t with hardware. IMPRESSION: No scintigraphic evidence of infection. Given plain radiograph findings, MRI with and without contra st could be considered.
[2021-05-12 17:53] LABS: Glucose,Whole Blood 204 mg/dL (75-99)
--- NOTE | 2021-05-12 18:43 | PN ---
PROGRESS NOTE DATE OF SERVICE: 05/12/2021 REASON FOR FOLLOWUP: Right big toe diabetic foot infection . INTERVAL HISTORY: The patient is afebrile. The patient is breathing comfortably. The patient denies having any chest pain, shortness of breath, cough. No nausea, vomiting. No abdominal pain or any worsening pain to the right big toe. PHYSICAL EXAMINATION: Blood pressure 155/75 with a pulse of 67, temperature 98.1. He is 100% on room air. General description is an elderly male up in the chair in no distress. Respiratory system: Unlabored breathing, clear to auscultation anteriorly. Heart S1, S2. Regular rate and rhythm. Abdomen soft, no tederness. Right big toe is currently dressed. No obvious drainage on the dressing. LABS: Hemoglobin is 12, BUN of 13, creatinine 0.84. Cultures currently pending. DIAGNOSTIC IMPRESSION AND PLAN: Patient with right big toe diabetic foot infection with maggot infestation. The patient at this time to continue Unasyn. We will get vascular surgery evaluation for debridement of the wound and deep cultures. Daughter at the bedside. Multiple questions were answered in layman's terms. MMODL / IJN: [id number] /
[2021-05-12 20:07] LABS: Glucose,Whole Blood 241 mg/dL (75-99)
[2021-05-12] MEDS: DONEPEZIL 10 MG TAB PO SCH (21:52)
--- NOTE | 2021-05-12 22:31 | P.PN ---
Subjective This is a pleasant 85 years old male with multiple medical problems presents with right toe infection. Currently his antibiotics were adjusted to Unasyn per ID team. Ecologist recommended to discontinue metoprolol for bradycardia. Bone scan showing no evidence of infection Wound culture is growing presumptive staph on the gram-negative bacilli. Objective - Vital Signs Vital signs: Vital Signs Temp 98.1 F 05/12/21 13:18 Pulse 67 05/12/21 13:18 Resp 18 05/12/21 13:18 BP 155/75 05/12/21 13:18 Pulse Ox 100 05/12/21 13:18 Intake & Output 05/11/21 05/12/21 05/12/21 18:59 06:59 18:59 Intake Total 740 Balance 740 Weight 99.79 kg Intake: Intake, IV Titration 200 Amount Ampicillin-Sulbactam 3 gm 200 In Sodium Chloride 0.9% 100 ml @ 200 mls/hr IVPB Q6HR [facility] Rx#:[id number] Oral 540 Other: Voiding Method Toilet Toilet Toilet - Exam GENERAL: The patient is alert and oriented x3, not in any acute distress. Well developed, well nourished. HEENT: Pupils are round and equally reacting to light. EOMI. No scleral icterus. No conjunctival pallor. Normocephalic, atraumatic. No pharyngeal erythema. No thyromegaly. CARDIOVASCULAR: S1 and S2 present. No murmurs, rubs, or gallops. PULMONARY: Chest is clear to auscultation, no wheezing or crackles. ABDOMEN: Soft, nontender, nondistended, normoactive bowel sounds. No palpable organomegaly. MUSCULOSKELETAL: No joint swelling or deformity. -EXTREMITIES: No cyanosis, clubbing, or pedal edema. Right toe infection NEUROLOGICAL: Gross neurological examination did not reveal any focal deficits. SKIN: No rashes. no petechiae. - Labs CBC & Chem 7: 05/11/21 03:50 05/12/21 11:17 Labs: Abnormal Lab Results - Last 24 Hours (Table) 05/11/21 05/11/21 05/12/21 Range/Units 16:58 20:53 11:17 Carbon Dioxide 31 H (22-30) mmol/L Glucose 207 H (74-99) mg/dL POC Glucose (mg/dL) 159 H 162 H (75-99) mg/dL 05/12/21 Range/Units 13:11 Carbon Dioxide (22-30) mmol/L Glucose (74-99) mg/dL POC Glucose (mg/dL) 195 H (75-99) mg/dL Microbiology - Last 24 Hours (Table) 05/11/21 16:45 Gram Stain - Preliminary Toe - Right First Wound Culture - Preliminary 05/10/21 14:47 Blood Culture - Preliminary Blood No Growth after 24 hours Assessment and Plan Assessment: Right toe infection secondary to gram-negative bacilli and presumptive staph. Bone scan showing no evidence of infection Bradycardia. 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 fib with slow heart rate was on Eliquis Plan: this is a pleasant 85 years old male who presents with right toe infection Continue with Unasyn Follow-up final wound culture ID team of the case Ecologist. The patient on discharge. This metoprolol Labs and medication were reviewed.. Continue same treatment. Continue with symptomatic treatment. Resume home medication. Monitor lytes and vitals. DVT and GI prophylaxis. Further recommendationsas per clinical course of the patient DVT prophylaxis: Eliquis GI Prophylaxis: Pepcid PT/OT: Pending
[2021-05-13] MEDS: AMPICILLIN-SULBACTAM 3 GM in SODIUM CHLORIDE 0.9% 100 ML IVPB SCH ×4 (05:48→23:51)
[2021-05-13 06:59] LABS: Glucose,Whole Blood 89 mg/dL (75-99)
[2021-05-13] MEDS: INSULIN ASPART (NovoLOG) 100 UNIT/ML VIAL SQ SCH ×4 (10:01→21:06)
[2021-05-13] MEDS: FUROSEMIDE 20 MG TAB PO SCH (10:14)
[2021-05-13] MEDS: GLIMEPIRIDE 4 MG TAB PO SCH ×2 (10:14→21:06)
[2021-05-13] MEDS: PRAVASTATIN SODIUM 40 MG TAB PO SCH (10:14)
[2021-05-13] MEDS: LOSARTAN 50 MG TAB PO SCH (10:14)
[2021-05-13] MEDS: LINAGLIPTIN 5 MG TABLET PO SCH (10:14)
[2021-05-13] MEDS: TAMSULOSIN 0.4 MG CAP.ER.24H PO SCH (10:14)
[2021-05-13] MEDS: FAMOTIDINE 20 MG/2 ML VIAL IV SCH (10:15)
[2021-05-13 11:47] LABS: Glucose,Whole Blood 181 mg/dL (75-99)
--- NOTE | 2021-05-13 13:52 | P.PN ---
Subjective This is a pleasant 85 years old male with multiple medical problems presents with right toe infection. Currently his antibiotics were adjusted to Unasyn per ID team. [employer] recommended to discontinue metoprolol for bradycardia. Bone scan showing no evidence of infection Wound culture is growing presumptive staph on the gram-negative bacilli. 05/13/2021 Patient is awake and alert, no new complaint. Still for right toe infection. Pending final wound culture. picc line Is recommended by ID team. Patient, currently with Unasyn possible discharge in 24-48 hours Objective - Vital Signs Vital signs: Vital Signs Temp 98 F 05/13/21 12:39 Pulse 61 05/13/21 12:39 Resp 17 05/13/21 12:39 BP 144/57 05/13/21 12:39 Pulse Ox 98 05/13/21 12:39 Intake & Output 05/12/21 05/13/21 05/13/21 18:59 06:59 18:59 Intake Total 500 Balance 500 Weight 99.79 kg Intake: Intake, IV Titration 100 Amount Ampicillin-Sulbactam 3 gm 100 In Sodium Chloride 0.9% 100 ml @ 200 mls/hr IVPB Q6HR [facility] Rx#:[id number] Oral 400 Other: Voiding Method Toilet Toilet Toilet # Voids 3 2 # Bowel Movements 0 - Exam GENERAL: The patient is alert and oriented x3, not in any acute distress. Well developed, well nourished. HEENT: Pupils are round and equally reacting to light. EOMI. No scleral icterus. No conjunctival pallor. Normocephalic, atraumatic. No pharyngeal erythema. No thyromegaly. CARDIOVASCULAR: S1 and S2 present. No murmurs, rubs, or gallops. PULMONARY: Chest is clear to auscultation, no wheezing or crackles. ABDOMEN: Soft, nontender, nondistended, normoactive bowel sounds. No palpable organomegaly. MUSCULOSKELETAL: No joint swelling or deformity. -EXTREMITIES: No cyanosis, clubbing, or pedal edema. Right toe infection NEUROLOGICAL: Gross neurological examination did not reveal any focal deficits. SKIN: No rashes. no petechiae. - Labs CBC & Chem 7: 05/11/21 03:50 05/12/21 11:17 Labs: Abnormal Lab Results - Last 24 Hours (Table) 05/12/21 05/12/21 05/13/21 Range/Units 17:51 20:05 11:38 POC Glucose (mg/dL) 204 H 241 H (75-99) mg/dL C-Reactive Protein 1.1 H (<1.0) mg/dL 05/13/21 Range/Units 11:45 POC Glucose (mg/dL) 181 H (75-99) mg/dL C-Reactive Protein (<1.0) mg/dL Microbiology - Last 24 Hours (Table) 05/11/21 16:45 Gram Stain - Preliminary Toe - Right First Wound Culture - Preliminary Gram Neg Bacilli Presumptive Staph aureus 05/10/21 14:47 Blood Culture - Preliminary Blood No Growth after 48 hours Assessment and Plan Assessment: Right toe infection secondary to gram-negative bacilli and presumptive staph. Bone scan showing no evidence of infection Bradycardia. 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 fib with slow heart rate was on Eliquis Plan: this is a pleasant 85 years old male who presents with right toe infection Continue with Unasyn Follow-up final wound culture ID team of the case [employer]. The patient on discharge. This metoprolol Labs and medication were reviewed.. Continue same treatment. Continue with symptomatic treatment. Resume home medication. Monitor lytes and vitals. DVT and GI prophylaxis. Further recommendationsas per clinical course of the patient DVT prophylaxis: Eliquis GI Prophylaxis: Pepcid PT/OT: Pending
[2021-05-13 17:31] LABS: Glucose,Whole Blood 204 mg/dL (75-99)
--- NOTE | 2021-05-13 17:43 | P.GSHP ---
History of Present Illness H&P Date: 05/12/21 Chief Complaint: Infection with abscess right foot Patient presented to the emergency room yesterday by his daughter with chief complaint of infection of right foot. Outer states is long-standing infection that has been degrading. Patient was evaluated in the emergency room and admitted for IV antibiotics and management of this wound. - Constitutional Comment: As per H&P - EENT Comment: As per H&P - Cardiovascular Comment: Patient's pedal pulses are diminished bilateral no digital hair user cool to cool bilateral Cardiovascular: Reports as per HPI - Gastrointestinal Gastrointestinal: Reports as per HPI - Genitourinary (Female) Genitourinary: Reports as per HPI - Musculoskeletal Comment: Patient has a full-thickness wound to the right hallux that extends to the proximal phalanx. Review of radiographs show possible osteomyelitis - Integumentary Comment: Full-thickness ulceration of both the right hallux right third toe is localized erythema and edema extending from these digits to the dorsum of the foot with edema - Endocrine Endocrine: Denies fatigue, Denies weight change - Hematologic/Lymphatic Hematologic/Lymphatic: Reports as per HPI - Allergic/Immunologic Allergic/Immunologic: Reports as per HPI Past Medical History Past Medical History: Diabetes Mellitus Additional Past Medical History / Comment(s): As per H&P History of Any Multi-Drug Resistant Organisms: None Reported Additional Past Surgical History / Comment(s): ankle surgery Past Psychological History: No Psychological Hx Reported Smoking Status: Former smoker Past Alcohol Use History: Occasional Past Drug Use History: None Reported Medications and Allergies Home Medications Medication Instructions Recorded Confirmed Type Apixaban [Eliquis] 5 mg PO BID 05/10/21 05/10/21 History Clopidogrel Bisulfate [Plavix] 75 mg PO DAILY 05/10/21 05/10/21 History Donepezil HCl [Aricept] 10 mg PO HS 05/10/21 05/10/21 History Furosemide [Lasix] 60 mg PO DAILY 05/10/21 05/10/21 History Glimepiride [Amaryl] 4 mg PO BID 05/10/21 05/10/21 History Losartan Potassium 50 mg PO DAILY 05/10/21 05/10/21 History Pravastatin Sodium [Pravachol] 40 mg PO DAILY 05/10/21 05/10/21 History Tamsulosin HCl [Flomax] 0.4 mg PO DAILY 05/10/21 05/10/21 History lisinopriL 20 mg PO DAILY 05/10/21 05/10/21 History sitaGLIPtin [Januvia] 100 mg PO DAILY 05/10/21 05/10/21 History Allergies Allergy/AdvReac Type Severity Reaction Status Date / Time No Known Allergies Allergy Verified 05/10/21 16:05 Surgical - Exam Vital Signs Temp Pulse Resp BP Pulse Ox 98.5 F 47 L 20 120/75 98 05/10/21 13:16 05/10/21 13:16 05/10/21 13:16 05/10/21 13:16 05/10/21 13:16 - Cardiovascular Pedal pulses are diminished bilateral with no digital hair extremities are cool to cool bilateral - Integumentary Full-thickness ulcerations beneath the nail plate of the right hallux to the underlying osseous tissue distally. There is firmness of this tissue does not suggest aggressive osteomyelitis is present. Full-thickness ulceration beneath the right third toe - Neurologic Patient has diminished epicritic and pallesthetic sensations bilateral - Musculoskeletal All inverters everters plantar flexors dorsiflexors grossly intact symmetrical bilateral range of motion ankle joint subtalar joint and midtarsal joints g rossly normal symmetric bilateral Results - Labs 05/11/21 03:50 05/12/21 11:17 Abnormal Lab Results - Last 24 Hours (Table) 05/12/21 05/12/21 05/13/21 Range/Units 17:51 20:05 11:38 POC Glucose (mg/dL) 204 H 241 H (75-99) mg/dL C-Reactive Protein 1.1 H (<1.0) mg/dL 05/13/21 05/13/21 Range/Units 11:45 17:30 POC Glucose (mg/dL) 181 H 204 H (75-99) mg/dL C-Reactive Protein (<1.0) mg/dL Microbiology - Last 24 Hours (Table) 05/10/21 14:47 Blood Culture - Preliminary Blood No Growth after 72 hours 05/11/21 16:45 Gram Stain - Preliminary Toe - Right First Wound Culture - Preliminary Gram Neg Bacilli Presumptive Staph aureus Assessment and Plan Assessment: Diabetic Nguyen grade 3 ulcerations right hallux right third toe with abscess Plan: Exam review radiographs show possibility of osteomyelitis patient's bone scan is pending today. Patient appears to have a staph infection of the foot patient would benefit from debridement of the necrotic tissue on and about the right second and third toe which we performed today. He should should respond favorably to this treatment. Plan is to stabilize patient IV antibiotics treat the wound and ostial as needed per clinical response
--- NOTE | 2021-05-13 17:47 | P.OP ---
Date of Procedure: 05/12/21 Preoperative Diagnosis: Infected Nguyen grade 3 ulcers right foot with extending cellulitis Postoperative Diagnosis: Same Procedure(s) Performed: Incision and drainage with debridement of infected tissue right foot Anesthesia: none Surgeon: James Marte Estimated Blood Loss (ml): 15 Pathology: none sent Condition: stable Disposition: no change Indications for Procedure: Infected abscess ulcerations right foot Operative Findings: Assistant Curator with clinical findings Description of Procedure: She was seen at bedside with an infection of the right foot discussed with patient prior to procedure complications prognosis risk expectations of procedure. That was signed and we proceeded to perform the surgery of debridement of infected wound with incision and drainage. As directed to the dorsum of the right foot where using a sterile curette the right hallux nail and right third digital nail plate was removed in total as a were loosely attached. The knee curette sterile we debrided the wound of all necrotic tissue marginally centrally to remove vitalized tissue acting as a nidus for the infection and to restore a good granular bed. Once this was achieved we flushed the wound copiously with sterile saline applied collagen silver dry sterile dressing. He shouldn't tolerated procedure well. Will follow
[2021-05-13] MEDS: APIXABAN 5 MG TAB PO SCH ×2 (17:50→20:49)
--- NOTE | 2021-05-13 17:50 | P.PN ---
Subjective Progress Note Date: 05/13/21 Principal diagnosis: Infected Nguyen grade 3 right foot Patient was seen at bedside sitting comfortably with no complaints dressing was intact she was attended by his daughter as well as son-in-law Objective - Vital Signs Vital signs: Vital Signs Temp 98 F 05/13/21 12:39 Pulse 61 05/13/21 12:39 Resp 17 05/13/21 12:39 BP 144/57 05/13/21 12:39 Pulse Ox 98 05/13/21 12:39 Intake & Output 05/12/21 05/13/21 05/13/21 18:59 06:59 18:59 Intake Total 500 Balance 500 Weight 99.79 kg Intake: Intake, IV Titration 100 Amount Ampicillin-Sulbactam 3 gm 100 In Sodium Chloride 0.9% 100 ml @ 200 mls/hr IVPB Q6HR [facility] Rx#:[id number] Oral 400 Other: Voiding Method Toilet Toilet Toilet # Voids 3 2 # Bowel Movements 0 - Exam The right foot appears stable with decreasing erythema decrease edema with no apparent increase in necrotic tissue. Overall the foot appears to be improving with current treatment review of the bone scan is inconclusive for osteomyelitis review of microbiology so staff infection. - Labs CBC & Chem 7: 05/11/21 03:50 05/12/21 11:17 Labs: Abnormal Lab Results - Last 24 Hours (Table) 05/12/21 05/12/21 05/13/21 Range/Units 17:51 20:05 11:38 POC Glucose (mg/dL) 204 H 241 H (75-99) mg/dL C-Reactive Protein 1.1 H (<1.0) mg/dL 05/13/21 05/13/21 Range/Units 11:45 17:30 POC Glucose (mg/dL) 181 H 204 H (75-99) mg/dL C-Reactive Protein (<1.0) mg/dL Microbiology - Last 24 Hours (Table) 05/10/21 14:47 Blood Culture - Preliminary Blood No Growth after 72 hours 05/11/21 16:45 Gram Stain - Preliminary Toe - Right First Wound Culture - Preliminary Gram Neg Bacilli Presumptive Staph aureus Assessment and Plan Assessment: Diabetic Nguyen grade 3 ulcerations right hallux right third toe with abscess Plan: Today we examined the foot discussed with patient findings. Patient as well as family is agreeable to outpatient IV therapy and wound care. Family is aware that additional debridement may be needed as patient may have osteomyelitis and may need surgical debridement in a operative setting. At this time will follow the patient in the wound care center discharge when stable PICC line placement etc. Acute for allowing us to participate in the care of this patient.
[2021-05-13] MEDS: CLOPIDOGREL 75 MG TAB PO SCH (17:51)
[2021-05-13 20:32] LABS: Glucose,Whole Blood 203 mg/dL (75-99)
[2021-05-13] MEDS: FAMOTIDINE 20 MG TAB PO SCH (21:06)
[2021-05-13] MEDS: DONEPEZIL 10 MG TAB PO SCH (21:06)
--- NOTE | 2021-05-13 22:38 | PN ---
PROGRESS NOTE DATE OF SERVICE: 05/13/2021 REASON FOR FOLLOWUP: Right big toe diabetic foot infection. INTERVAL HISTORY: Patient is afebrile. The patient did have debridement of his wound by Dr. Marte yesterday. Unfortunately, no cultures were obtained. The patient tolerated the procedure. Denies any chest pain or shortness of breath or cough. No abdominal pain. No diarrhea. PHYSICAL EXAMINATION: Blood pressure 138/52 with a pulse of 56. Temperature 98.1. He is 99% on room air. General description is an elderly male lying in bed in no distress. Respiratory system: Unlabored breathing, clear to auscultation anteriorly. Heart S1, S2. Regular rate and rhythm. Abdomen soft, no tenderness. LABS: Wound culture showing Gram-negative and presumptive Staph Aureus. DIAGNOSTIC IMPRESSION AND PLAN: Patient with right big toe wound status post debridement, which is all the way down to the bone. Clinically behaving as osteomyelitis. Still waiting for the culture to finalize to determine his discharge antibiotics. Currently covered with Unasyn. Daughter at the bedside. Multiple questions and concerns were answered. Local care with Aquacel Silver dressing. MMODL / IJN: [id number] /
[2021-05-14] MEDS: AMPICILLIN-SULBACTAM 3 GM in SODIUM CHLORIDE 0.9% 100 ML IVPB SCH (05:32)
[2021-05-14 07:20] LABS: Glucose,Whole Blood 78 mg/dL (75-99)
[2021-05-14] MEDS: INSULIN ASPART (NovoLOG) 100 UNIT/ML VIAL SQ SCH ×2 (08:26→13:15)
[2021-05-14] MEDS: TAMSULOSIN 0.4 MG CAP.ER.24H PO SCH (08:28)
[2021-05-14] MEDS: FAMOTIDINE 20 MG TAB PO SCH (08:28)
[2021-05-14] MEDS: FUROSEMIDE 20 MG TAB PO SCH (08:28)
[2021-05-14] MEDS: PRAVASTATIN SODIUM 40 MG TAB PO SCH (08:28)
[2021-05-14] MEDS: LINAGLIPTIN 5 MG TABLET PO SCH (08:28)
[2021-05-14] MEDS: GLIMEPIRIDE 4 MG TAB PO SCH (08:28)
[2021-05-14] MEDS: LOSARTAN 50 MG TAB PO SCH (08:28)
--- NOTE | 2021-05-14 10:43 | CDI ---
Documentation Clarification Form Date: 05/14/2021 10:22:43 AM From: Lily Smallwood RN, CCDS Admit Date: 05/10/2021 03:33:00 PM Patient Name: Neftaly Jalloh Visit Number: [id number] Discharge Date: ATTENTION: The Clinical Documentation Specialists (CDI) and [facility] Coding Staff appreciate your assistance in clarifying documentation. Please respond to the clarification below the line at the bottom and electronically sign. The CDI & [facility] Coding staff will review the response and follow-up if needed. Please note: Queries are made part of the Legal Health Record. If you have any questions, please contact the author of this message via ITS. Dr. Michi Michel Atrial Fibrillation is documented in your consult on 05/11/21. Additional clarification regarding the type of atrial fibrillation is requested. History/Risk Factors: Diabetes Mellitus, Clinical Indicators: 85-year-old male present for evaluation or right first toe open wound. He I unaware of any history of atrial fibrillation but is on Eliquis and Metoprolol at home. 05/10 EKG/telemetry: Atrial fibrillation with slow ventricular response with competing junctional pacemaker. 05/11 ECHO: The left ventricular size is normal. There is moderate concentric left ventricular hypertrophy. 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 Treatment: Eliquis 5 MG PO Monitor PT, INR per orders Please clarify the type of atrial fibrillation, if known: [ ] Chronic [ ] Permanent [ ] Paroxysmal [ ] Persistent [ ] Other, please specify [ ] Unable to determine (Template Last Revised: November 2020) see discharge summary 04/2021 Dr. Abi PORTILLO
[2021-05-14] MEDS ORDERED: LIDOCAINE 1% INJ 10MG/ML (20 ML MDV) SQ ONE (11:14)
--- NOTE | 2021-05-14 11:17 | CDI ---
Documentation Clarification Form Date: 05/14/2021 10:54:17 AM From: Lily Smallwood RN, CCDS Admit Date: 05/10/2021 03:33:00 PM Patient Name: Neftaly Jalloh Visit Number: [id number] Discharge Date: ATTENTION: The Clinical Documentation Specialists (CDI) and [facility] Coding Staff appreciate your assistance in clarifying documentation. Please respond to the clarification below the line at the bottom and electronically sign. The CDI & [facility] Coding staff will review the response and follow-up if needed. Please note: Queries are made part of the Legal Health Record. If you have any questions, please contact the author of this message via ITS. Dr. James Kellogg debridement is documented 05/13/21. Additional clarification regarding the procedure is requested. 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 05/12 Operative note: "using sterile curette the right hallux nail and right third distal nail plate was removed in total as were loosely attached, "we debrided the wound of all necrotic tissue. 05/10 Right foot XR: There is loss of the tuft of the distal phalanx of the big toe consistent with some chronic osteomyelitis 05/12 Bone Scan: No scintigraphic evidence of infection. Treatment: Incision and drainage with debridement of infected tissue right foot Rocephin 2 GM IV Q 24HR Unasyn 3 GM IVPB Q 6HR (05/12-05/14) Local wound care with Aquacel Silver Dressing per orders Please clarify the technique of procedure performed: [ ] Excisional debridement (the removal of necrotic, devitalized tissue or slough by means of cutting away of tissue) [ ] Non-excisional debridement (the removal of necrotic, devitalized tissue or slough by means of flushing, brushing, or washing. (Irrigation) [ ] Other; please specify [ ] Unable to determine Five elements required for accurate and compliant documentation of a debridement: Technique used (e.g., excisional, excised, cutting, brushing, jet lavage etc.) Instrument(s) used (e.g., scalpel, curette, etc.) Nature of the tissue removed (e.g., necrotic, devitalized tissues, non-viable tissue, etc.) Appearance and size of the wound (e.g., down to fresh bleeding tissue, 7cm x 10cm, etc.) Depth of the debridement* (e.g., skin, subcutaneous tissue, fascia, muscle, bone, etc.) (Template Last Revised: September 2020) MTDD
[2021-05-14 12:00] LABS: Glucose,Whole Blood 253 mg/dL (75-99)
[2021-05-14] MEDS: APIXABAN 5 MG TAB PO SCH (12:59)
[2021-05-14] MEDS: CLOPIDOGREL 75 MG TAB PO SCH (12:59)
--- NOTE | 2021-05-14 14:03 | IR ---
EXAMINATION TYPE: IR cvc insert >=5 years DATE OF EXAM: 05/14/2021 COMPARISON: NONE CLINICAL HISTORY: Infection Needs long-term intravenous access for antibiotics. PROCEDURE: Hand hygiene obtained with soap and water and alcohol-based hand rub. After informed consent, the skin overlying the right basilic vein was localized with ultrasound and n oted to be compressible and patent. An ultrasound image was obtained and submitted on the patient's chart. The overlying skin was prepped and draped and Lidocaine was used for local anesthesia. A ski n theresa was made with a scalpel. Access was gained to the vein under ultrasound guidance with a 21 ga uge needle and a 0.018 inch wire was advanced. Access site was dilated with Peel-Away sheath and cat heter tailored to the appropriate length and advanced such that the distal tip is at the cavoatrial j unction. Spot image was obtained verifying placement. Catheter was fixed to the skin and a sterile dressing was placed following hemostasis. Catheter was aspirated and flushed with saline. Patient w as discharged in stable condition without complication.Maximal barrier technique is utilized. Ultras ound image is documented on the chart. Ultrasound used with sterile technique. Fluoro time and fluoroscopic images submitted to document procedure: 266 intraoperative C-arm images document the procedure, 0.9 minutes fluoroscopy time IMPRESSION: STATUS POST ULTRASOUND AND FLUOROSCOPIC GUIDED PICC LINE PLACEMENT, READY FOR USE. THIS PROCEDURE WAS PERFORMED BY THE UNDERSIGNED.
--- NOTE | 2021-05-14 14:46 | P.DS ---
<Coral Erickson - Last Filed: 05/14/21 14:36> Providers Expected date of discharge: 05/14/21 Hospital Course: Final diagnosis Right great toe infection secondary to Klebsiella oxytoca and Staphylococcus aureus. Bone scan showing no evidence of infection Bradycardia Dementia Diabetes mellitus with hyperglycemia Chronic A. fib with slow heart rate, maintained on Eliquis Discharge disposition Patient is being discharged in a stable condition with guarded prognosis to [facility] for continued PT/OT therapy. Patient will follow-up with Dr. Morataya in the outpatient setting upon discharge. Patient is to also follow- up with Dr. Marte and Dr. Weaver along with cardiology as scheduled. Patient will continue on IV ceftriaxone 2 g daily per infectious disease recommendations. Total time taken is greater than 35 minutes. Hospital course This is a pleasant 85-year-old male who was recently admitted with right toe infection and concern for osteomyelitis. Patient being followed by infectious disease along with podiatry Dr. Marte and will have close outpatient follow-up with wound center along with Dr. Marte in the outpatient setting. Patient's bone scan showing no evidence of infection although behaving as osteomyelitis. Patient was maintained on IV Zosyn and was transitioned to IV ceftriaxone and patient is having a PICC line placed and will continue with IV antibiotic therapy along with wound care and Homecare in the outpatient setting. Patient okay to resume anticoagulant and Plavix and recommending follow-up with primary care provider as well. Patient underwent debridement at the bedside by Dr. Marte and recommending outpatient IV antibiotic therapy and following up with his clinic in one week. Patient is adamant about going home today and requesting to go home. Patient has been cleared by ID and podiatry with close outpatient follow-up. Currently no reports of chest pain, shortness of breath, or palpitations. Patient is afebrile. No reports of nausea or vomiting and patient is tolerating diet. Patient will be discharged home today. GENERAL: The patient is alert and oriented x3, not in any acute distress. Well developed, well nourished. HEENT: Pupils are round and equally reacting to light. EOMI. No scleral icterus. No conjunctival pallor. Normocephalic, atraumatic. No pharyngeal erythema. No thyromegaly. CARDIOVASCULAR: S1 and S2 present. No murmurs, rubs, or gallops. PULMONARY: Chest is clear to auscultation, no wheezing or crackles. ABDOMEN: Soft, nontender, nondistended, normoactive bowel sounds. No palpable organomegaly. MUSCULOSKELETAL: No joint swelling or deformity. -EXTREMITIES: No cyanosis, clubbing, or pedal edema. Right toe infection with dressing noted NEUROLOGICAL: Gross neurological examination did not reveal any focal deficits. SKIN: No rashes. no petechiae. Please refer to medication reconciliation sheet for a list of medications. Patient Condition at Discharge: Stable Plan - Discharge Summary Discharge Rx Participant: Yes New Discharge Prescriptions: New Famotidine [Pepcid] 20 mg PO Q12HR 30 Days #60 tab cefTRIAXone [Rocephin] 2 gm IVPB Q24H #42 each Continue lisinopriL 20 mg PO DAILY Pravastatin Sodium [Pravachol] 40 mg PO DAILY Donepezil HCl [Aricept] 10 mg PO HS Apixaban [Eliquis] 5 mg PO BID Tamsulosin HCl [Flomax] 0.4 mg PO DAILY Losartan Potassium 50 mg PO DAILY Furosemide [Lasix] 60 mg PO DAILY sitaGLIPtin [Januvia] 100 mg PO DAILY Glimepiride [Amaryl] 4 mg PO BID Clopidogrel Bisulfate [Plavix] 75 mg PO DAILY Discontinued Metoprolol Tartrate 12.5 mg PO BID Discharge Medication List Apixaban [Eliquis] 5 mg PO BID 05/10/21 [History] Clopidogrel Bisulfate [Plavix] 75 mg PO DAILY 05/10/21 [History] Donepezil HCl [Aricept] 10 mg PO HS 05/10/21 [History] Furosemide [Lasix] 60 mg PO DAILY 05/10/21 [History] Glimepiride [Amaryl] 4 mg PO BID 05/10/21 [History] Losartan Potassium 50 mg PO DAILY 05/10/21 [History] Pravastatin Sodium [Pravachol] 40 mg PO DAILY 05/10/21 [History] Tamsulosin HCl [Flomax] 0.4 mg PO DAILY 05/10/21 [History] lisinopriL 20 mg PO DAILY 05/10/21 [History] sitaGLIPtin [Januvia] 100 mg PO DAILY 05/10/21 [History] Famotidine [Pepcid] 20 mg PO Q12HR 30 Days #60 tab 05/14/21 [Rx] cefTRIAXone [Rocephin] 2 gm IVPB Q24H #42 each 05/14/21 [Rx] Follow up Appointment(s)/Referral(s): [facility] [Provider Group] - 1 Week ( office will pull records and give patient a call with time and date) James Marte, DPM [STAFF PHYSICIAN] - 05/20/21 2:30 pm [facility] [NON-STAFF] - 05/22/21 11:30 am (patient is scheduled at [facility] with ) Jennifer Morataya MD [Primary Care Provider] - 05/21/21 11:00 am Patient Instructions/Handouts: Foot Care for People with Diabetes (DC), Diabetic Foot Ulcers (DC), Peripherally Inserted Central Catheters and Midline Catheters (DC) Activity/Diet/Wound Care/Special Instructions: Aquacel silver dressing to the right big toe wound , change q48hr , follow up with Dr weaver in wound care , call [phone] to make an appointment Activity Limited until follow-up Okay to resume Eliquis and Plavix Continue local wound care as directed Follow-up with Dr. Weaver in the outpatient setting as scheduled Follow-up with Dr. Marte in the outpatient setting in 1 week Follow-up primary care provider upon discharge Follow-up with cardiology outpatient in one week Discharge Disposition: HOME WITH HOME HEALTH SERVICES <Preston Alex E - Last Filed: 05/15/21 06:59> Providers Date of admission: 05/10/21 15:33 Attending physician: Jennifer Vasquez MD Consults: 05/10/21 15:49 Consult Physician Urgent Consulting Provider: James Marte Consult Reason/Comments: right foot cellulitis and right first toe open wound with maggots Do you want consulting provider notified?: Yes 05/10/21 18:45 Consult Physician Routine Consulting Provider: Jaelyn Weaver Consult Reason/Comments: toe infection-osteo? Do you want consulting provider notified?: Yes Primary care physician: Jennifer Morataya [facility] Hospital Course: I discussed the plan and reviewed documentation and note by nurse practitioner Coral and agree with it except was mentioned below Patient was seen and examined by me at bedside. Patient denies any other symptoms and states yesterday was eager to go home. Problems and management plan were discussed with the patient and he verbalized understanding and acceptance Patient was found stable and can be discharged home however he needs follow-up as an outpatient. Patient was instructed to follow up with PCP Dr. Morataya within one week and patient agrees, appointment made for him on 09/21 Also patient was instructed to follow-up with wound center and he agrees with the appointments made for him on 05/22 Also patient was instructed to follow up with Dr. Marte web designer developer on 05/20 and he agrees And patient was instructed to follow up with career coach in 1 week and he agrees
[2021-05-14 15:24] VITALS: BP 144/70; PULSE 53; RESP 17; TEMP 97.9
--- NOTE | 2021-05-14 16:00 | PN ---
PROGRESS NOTE DATE OF SERVICE: 05/14/2021 REASON FOR FOLLOWUP: Right big toe infected wound with underlying osteomyelitis. INTERVAL HISTORY: The patient is afebrile. The patient is breathing comfortably. Denies having any chest pain, shortness of breath or cough. No pain to the right big toe. PHYSICAL EXAMINATION: Blood pressure 144/70 with a pulse of 53. Temperature 97.9. He is 98% on room air. General description is an elderly male up in the chair in no distress. RESPIRATORY SYSTEM: Unlabored breathing. Clear to auscultation anteriorly. HEART: S1, S2. Regular rate and rhythm. ABDOMEN: Soft. No tenderness. Right foot is currently dressed up. No obvious drainage on the dressing. LABS: Wound culture finalized with MSSA and Klebsiella. DIAGNOSTIC IMPRESSION AND PLAN: Patient with a right big toe wound with maggot infestation, concerning for osteomyelitis, as the wound was tracking down to the bone. Plan at this time is to switch antibiotic therapy to Rocephin 2 grams daily for 6 weeks. Local wound care with Aquacel Silver dressing and close outpatient followup. Plan of care was discussed with the patient's daughter on the phone. MMODL / IJN: [id number] /
--- NOTE | 2021-05-15 08:03 | CDI ---
Documentation Clarification Form Date: 05/15/2021 07:33:00 AM From: Mary Murphy Admit Date: 05/10/2021 03:33:00 PM Patient Name: Neftaly Jalloh Visit Number: [id number] Discharge Date: 05/14/2021 03:00:00 PM ATTENTION: The Clinical Documentation Specialists (CDI) and [facility] Coding Staff appreciate your assistance in clarifying documentation. Please respond to the clarification below the line at the bottom and electronically sign. The CDI & [facility] Coding staff will review the response and follow-up if needed. Please note: Queries are made part of the Legal Health Record. If you have any questions, please contact the author of this message via ITS. Dr. Johnston E Sheet Conflicting documentation has been found in the medical record. As attending physician, please provide clarification. Per your DCS "Bone scanning showing no evidence of infection although behaving like osteomyelitis". Per ID last PN "Concerning for osteomyelitis as the wound was tracking down to the bone. Please clarify: History/Risk Factors: Diabetes, abscess, cellulitis, ulcer Treatment: Debridement Dr. Marte, Antibiotic therapy, Aquacel Silver dressing and close OP followup. Please clarify which diagnosis is most appropriate: [ ] Osteomyelitis [ ] Osteomyelitis ruled out [ ] Other (please specify) [ ] Unable to determine osteomyelitis is suspected and treated upon discharge [facility]
--- NOTE | 2021-05-19 09:16 | CDI ---
Documentation Clarification Form Date: 05/14/2021 10:54:00 AM From: Lily Smallwood RN, CCDS Admit Date: 05/10/2021 03:33:00 PM Patient Name: Neftaly Jalloh Visit Number: [id number] Discharge Date: 05/14/2021 03:00:00 PM ATTENTION: The Clinical Documentation Specialists (CDI) and [facility] Coding Staff appreciate your assistance in clarifying documentation. Please respond to the clarification below the line at the bottom and electronically sign. The CDI & [facility] Coding staff will review the response and follow-up if needed. Please note: Queries are made part of the Legal Health Record. If you have any questions, please contact the author of this message via ITS. Dr. James Kellogg debridement is documented 05/13/21 Additional clarification regarding the procedure is requested. 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 05/12 Operative note: "using sterile curette the right hallux nail and right third distal nail plate was removed in total as were loosely attached, "we debrided the wound of all necrotic tissue" 05/10 Right foot XR: There is loss of the tuft of the distal phalanx of the big toe consistent with some chronic osteomyelitis 05/12 Bone Scan: No scintigraphic evidence of infection. Treatment: Incision and drainage with debridement of infected tissue right foot Rocephin 2 GM IV Q 24HR Unasyn 3 GM IVPB Q 6HR (05/12-05/14) Local wound care with Aquacel Silver Dressing per orders Please clarify the technique of procedure performed: [ ] Excisional debridement (the removal of necrotic, devitalized tissue or slough by means of cutting away of tissue) [ ] Non-excisional debridement (the removal of necrotic, devitalized tissue or slough by means of flushing, brushing, or washing. (Irrigation) [ ] Other; please specify [ ] Unable to determine Five elements required for accurate and compliant documentation of a debridement: Technique used (e.g., excisional, excised, cutting, brushing, jet lavage etc.) Instrument(s) used (e.g., scalpel, curette, etc.) Nature of the tissue removed (e.g., necrotic, devitalized tissues, non-viable tissue, etc.) Appearance and size of the wound (e.g., down to fresh bleeding tissue, 7cm x 10cm, etc.) Depth of the debridement* (e.g., skin, subcutaneous tissue, fascia, muscle, bone, etc.) (Template Last Revised: September 2020) MTDD
--- NOTE | 2021-05-30 09:15 | CDI ---
Documentation Clarification Form Date: 05/14/2021 10:54:00 AM From: Lily Smallwood Phone: Admit Date: 05/10/2021 03:33:00 PM Patient Name: Neftaly Jalloh Visit Number: [id number] Discharge Date: 05/14/2021 03:00:00 PM ATTENTION: The Clinical Documentation Specialists (CDI) and [facility] Coding Staff appreciate your assistance in clarifying documentation. Please respond to the clarification below the line at the bottom and electronically sign. The CDI & [facility] Coding staff will review the response and follow-up if needed. Please note: Queries are made part of the Legal Health Record. If you have any questions, please contact the author of this message via ITS. Dr. James Kellogg debridement is documented 05/13/21 Additional clarification regarding the technique used in the procedure is requested. 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 05/12 Operative note: "using sterile curette the right hallux nail and right third distal nail plate was removed in total as were loosely attached, "we debrided the wound of all necrotic tissue" 05/10 Right foot XR: There is loss of the tuft of the distal phalanx of the big toe consistent with some chronic osteomyelitis 05/12 Bone Scan: No scintigraphic evidence of infection. Treatment: Incision and drainage with debridement of infected tissue right foot Rocephin 2 GM IV Q 24HR Unasyn 3 GM IVPB Q 6HR (05/12-05/14) Local wound care with Aquacel Silver Dressing per orders Please clarify the technique of procedure performed: [x ] Excisional debridement (the removal of necrotic, devitalized tissue or slough by means of cutting away of tissue) [ ] Non-excisional debridement (the removal of necrotic, devitalized tissue or slough by means of flushing, brushing, or washing. (Irrigation) [ ] Other; please specify [ ] Unable to determine Five elements required for accurate and compliant documentation of a debridement: Technique used (e.g., excisional, excised, cutting, brushing, jet lavage etc.) Instrument(s) used (e.g., scalpel, curette, etc.) Nature of the tissue removed (e.g., necrotic, devitalized tissues, non-viable tissue, etc.) Appearance and size of the wound (e.g., down to fresh bleeding tissue, 7cm x 10cm, etc.) Depth of the debridement* (e.g., skin, subcutaneous tissue, fascia, muscle, bone, etc.) (Template Last Revised: September 2020) MTDD
== END 2021-05-14 15:00 | disposition home health service (06) | DRG 623 ==
LOC: EC 12:59 → 5NMEDONC 15:33
PROVIDERS: ADMIT Internal Medicine; ATTEND Internal Medicine
PROC: 0JBQ0ZZ Excision of Right Foot Subcutaneous Tissue and Fascia, Open Approach (ICD-10-PCS; principal; 2021-05-12)
PROC: 02HV33Z Insertion of Infusion Device into Superior Vena Cava, Percutaneous Approach (ICD-10-PCS; 2021-05-14)
DX: E11.621 Type 2 diabetes mellitus with foot ulcer (principal); I47.2 Ventricular tachycardia; I48.20 Chronic atrial fibrillation, unspecified; L02.611 Cutaneous abscess of right foot; L03.115 Cellulitis of right lower limb; M86.671 Other chronic osteomyelitis, right ankle and foot; E11.628 Type 2 diabetes mellitus with other skin complications; E11.65 Type 2 diabetes mellitus with hyperglycemia; D63.8 Anemia in other chronic diseases classified elsewhere; B87.1 Wound myiasis; B95.8 Unspecified staphylococcus as the cause of diseases classified elsewhere; B96.1 Klebsiella pneumoniae [K. pneumoniae] as the cause of diseases classified elsewhere; E66.9 Obesity, unspecified; E78.5 Hyperlipidemia, unspecified; F03.90 Unspecified dementia, unspecified severity, without behavioral disturbance, psychotic disturbance, mood disturbance, and anxiety; E11.69 Type 2 diabetes mellitus with other specified complication; I10 Essential (primary) hypertension; I27.20 Pulmonary hypertension, unspecified; I49.3 Ventricular premature depolarization; L97.519 Non-pressure chronic ulcer of other part of right foot with unspecified severity; Z68.33 Body mass index [BMI] 33.0-33.9, adult; Z20.822 Contact with and (suspected) exposure to COVID-19; Z79.01 Long term (current) use of anticoagulants; Z79.02 Long term (current) use of antithrombotics/antiplatelets; Z79.84 Long term (current) use of oral hypoglycemic drugs; Z79.899 Other long term (current) drug therapy; Z87.891 Personal history of nicotine dependence; Z98.890 Other specified postprocedural states
CPT/HCPCS: 36415; 36573; 78315; 80048; 80053; 83036; 83605; 83735; 84132; 84443; 85025; 85610; 85652; 85730; 86140; 87040; 87070; 87077; 87186; 87205; 87635; 93005; 93306; 96365; 96366; 96367; 99284